=== PATIENT | female | born 1955 | race Caucasian/White ===

== ENCOUNTER → 2017-06-02 | Outpatient (CLI) | payer BC ==
[~2017-06-02] MED LIST: AMLO5TAB2 PO; BIOT300T2 PO; LMEF1TAB PO; OMEG-116 PO
== END | disposition home or self-care (01) ==
LOC: RAH 13:39
DX: Z12.31 Encounter for screening mammogram for malignant neoplasm of breast (principal)
CPT/HCPCS: 77067

== ENCOUNTER 2017-06-07 06:38 | Day surgery (SDC) | payer BC ==
[~2017-06-07] VITALS: Ht 154.9 cm; Wt 60.1 kg
[~2017-06-07 06:38] MED LIST changes: -LMEF1TAB PO
[2017-06-07] MEDS ORDERED: SODIUM CHLORIDE 0.9% 1000ML 1,000 ML IV ONE (06:48)
[2017-06-07 07:15] VITALS: BP 135/80
[2017-06-07] MEDS ORDERED: LMEF1TAB PO (07:47)
[2017-06-07] MEDS ORDERED: PROPOFOL 10 MG/ML 20ML VIAL IV ONE (09:35)
[2017-06-07] MEDS ORDERED: FENTANYL CITRATE PF 50 MCG/1 ML 2ML VIAL ONE (09:39)
[2017-06-07 09:56] VITALS: BP 106/60
== END 2017-06-07 10:35 | disposition home or self-care (01) ==
LOC: DAH 06:38
PROVIDERS: ATTEND Internal Medicine Gastroenterology
DX: Z12.11 Encounter for screening for malignant neoplasm of colon (principal); K57.30 Diverticulosis of large intestine without perforation or abscess without bleeding; K63.89 Other specified diseases of intestine; I10 Essential (primary) hypertension; F17.210 Nicotine dependence, cigarettes, uncomplicated; Z79.899 Other long term (current) drug therapy
CPT/HCPCS: 45378; A4606; J2704; J3010; J7030

== ENCOUNTER → 2018-06-03 | Outpatient (CLI) | payer BC ==
[~2018-06-03] MED LIST changes: -AMLO5TAB2 PO; +AMLO5TAB9 PO; -BIOT300T2 PO; +BIOT300T3 PO; +LMEF1TAB PO
== END | disposition home or self-care (01) ==
LOC: RAH 09:09
PROVIDERS: ATTEND Nurse Practitioner Adult Health
DX: Z12.31 Encounter for screening mammogram for malignant neoplasm of breast (principal)
CPT/HCPCS: 77067

== ENCOUNTER → 2019-06-07 | Outpatient (CLI) | payer BC ==
[~2019-06-07] MED LIST changes: -BIOT300T3 PO; +BIOT300T7 PO
== END | disposition home or self-care (01) ==
LOC: RAH 08:43
PROVIDERS: ATTEND Nurse Practitioner Adult Health
DX: Z12.31 Encounter for screening mammogram for malignant neoplasm of breast (principal)
CPT/HCPCS: 77067

== ENCOUNTER 2024-03-07 04:37 | Inpatient (IN) | payer OTHER ==
[~2024-03-07] VITALS: Ht 162.6 cm; Wt 83.5 kg
[2024-03-07] VITALS (11 sets, daily range): BP systolic 102–146; BP diastolic 62–85; PULSE 87–108; RESP 17–32; TEMP 97–98.5; O2SAT 96–99
[~2024-03-07 04:37] MED LIST changes: +AMLO-257 PO; -AMLO5TAB9 PO
[2024-03-07 04:58] LABS: BASOPHILS # (AUTO) 0.06 K/uL (0.00-0.20); BASOPHILS % (AUTO) 0.4 % (0.0-5.0); EOSINOPHILS # (AUTO) 0.17 K/uL (0.00-0.70); EOSINOPHILS % (AUTO) 1.1 % (0.0-8.0); IMMATURE GRANULOCYTE ABSOLUTE 0.06 K/uL (0-1); LYMPHOCYTES % (AUTO) 6.2 % (21.0-51.0); MEAN CORPUSCULAR HEMOGLOBIN 30.2 pg (27.0-33.0); MEAN CORPUSCULAR HGB CONC 33.9 g/dL (32.0-36.0); MEAN CORPUSCULAR VOLUME 89.2 fL (79-99); MONOCYTES # (AUTO) 0.4 K/uL (0.1-1.0); MONOCYTES % (AUTO) 2.8 % (3.0-13.0); NEUTROPHILS % (AUTO) 89.1 % (40.0-77.0); PLATELET COUNT (AUTO) 246 K/uL (130-400); RED BLOOD CELL COUNT(AUTO) 4.93 MIL/uL (4.00-5.50); RED CELL DISTRIBUTION WIDTH 12.6 % (11.0-15.5); WHITE BLOOD COUNT (AUTO) 15.7 K/uL (4.8-10.8)
[2024-03-07 05:07] LABS: CREATININE 0.8 mg/dL (0.5-1.0); POTASSIUM 4.2 mmol/L (3.5-5.1)
[2024-03-07] MEDS: Solu-medROL 125MG VIAL ONE (05:11)
[2024-03-07] MEDS: Solu-medROL 125MG VIAL IVP ONE (05:13)
[2024-03-07] MEDS: MAGNESIUM 2GM PREMIX 50ML 50 ML IV SCH (05:14)
[2024-03-07] MEDS: MAGNESIUM 2GM PREMIX 50ML 50 ML IV ONE (05:15)
[2024-03-07 05:26] LABS: ABG HCO3 23.4 mmol/L (21.0-28.0); ABG OXYGEN SATURATION 95.7 % (94.0-98.0); ABG PCO2 46 mmHg (32-45); CARBON MONOXIDE 1.3 % (0.5-1.5); HHb 4.2; PO2, ARTERIAL BG 85.8 mmHg (83.0-108.0)
[2024-03-07] MEDS: BUDESONIDE 0.5 MG/2 ML INH IH ONE (05:35)
[2024-03-07] MEDS: IpraTROPium/alBUTERol SULFATE 3 ML SOLUTION IH ONE (05:35)
[2024-03-07 05:55] LABS: B-TYPE NATRIURETIC PEPTIDE 9 pg/mL (0-100)
[2024-03-07 05:57] LABS: WBC MORPHOLOGY CONSISTENT W/DIFF
[2024-03-07] MEDS ORDERED: levoFLOXacin 750 MG/D5W 150ML BAG IV ONE (06:30)
[2024-03-07 06:36] LABS: SARS-CoV-2, RNA, NAAT NEGATIVE SARS CoV-2 (NEGATIVE)
[2024-03-07 06:43] LABS: INFLUENZA TYPE A Negative For Type A (NEGATIVE); INFLUENZA TYPE B Negative For Type B (NEGATIVE)
[2024-03-07] MEDS: levoFLOXacin 500 MG/D5W 100 ML 100 ML IV SCH (06:44)
[2024-03-07] MEDS: furoSEMIDE 40MG VIAL IV ONE (06:45)
[2024-03-07] MEDS ORDERED: PoTASSium chl 10% ELIXIR 20MEQ 20 MEQ/15 ML UDCUP PO PRN (07:00)
[2024-03-07] MEDS ORDERED: PoTASSium chloRIDE 20MEQ/100ML 100 ML IV PRN (07:00)
[2024-03-07] MEDS ORDERED: BENZONATATE 100 MG CAPSULE PO PRN (07:00)
[2024-03-07] MEDS ORDERED: acetaMINOPHEN 325 MG TAB PO PRN (07:00)
[2024-03-07] MEDS ORDERED: MAGNESIUM 2GM PREMIX 50ML 50 ML IV PRN (07:00)
[2024-03-07] MEDS ORDERED: ondanSETRON 4MG INJ IVP PRN (07:00)
[2024-03-07] MEDS ORDERED: PoTASSium chloRIDE 20MEQ ER 20 MEQ ERTAB PO PRN (07:00)
[2024-03-07] MEDS: levoFLOXacin 500 MG/D5W 100 ML 100 ML ONE (07:22)
[2024-03-07] MEDS: Solu-medROL 40MG VIAL IVP SCH ×2 (07:36→14:37)
[2024-03-07] MEDS ORDERED: ATOR40TA69 PO (11:04)
[2024-03-07] MEDS ORDERED: CALC-910 PO (11:04)
[2024-03-07] MEDS ORDERED: METO-391 PO (11:04)
[2024-03-07] MEDS ORDERED: BIOT5000 PO (11:04)
[2024-03-07] MEDS ORDERED: VITA100T9 PO (11:04)
[2024-03-07] MEDS: IpraTROPium/alBUTERol SULFATE 3 ML SOLUTION IH SCH (11:43)
[2024-03-07] MEDS: monteLUKAST sodIUM 10 MG TAB PO SCH (14:37)
[2024-03-07] MEDS: BENZONATATE 100 MG CAPSULE PO SCH (14:37)
[2024-03-07] MEDS: SODIUM CHLORIDE 3% FOR INHALATION 4 ML/AMP VIAL.NEB IH ONE (19:07)
[2024-03-08] VITALS (17 sets, daily range): BP systolic 94–119; BP diastolic 54–72; PULSE 80–111; RESP 13–20; TEMP 97.8–99.1; O2SAT 93–98
[2024-03-08] MEDS ORDERED: SODIUM CHLORIDE 3% FOR INHALATION 4 ML/AMP VIAL.NEB IH ONE (00:23)
[2024-03-08 03:54] LABS: BASOPHILS # (AUTO) 0.02 K/uL (0.00-0.20); BASOPHILS % (AUTO) 0.1 % (0.0-5.0); HEMATOCRIT 41.2 % (36-48); IMMATURE GRANULOCYTE ABSOLUTE 0.08 K/uL (0-1); LYMPHOCYTES # (AUTO) 0.7 K/uL (1.0-4.8); LYMPHOCYTES % (AUTO) 4.2 % (21.0-51.0); MEAN CORPUSCULAR HEMOGLOBIN 30.4 pg (27.0-33.0); MEAN CORPUSCULAR HGB CONC 33.3 g/dL (32.0-36.0); MEAN CORPUSCULAR VOLUME 91.6 fL (79-99); MONOCYTES # (AUTO) 0.5 K/uL (0.1-1.0); MONOCYTES % (AUTO) 3.1 % (3.0-13.0); NEUTROPHILS % (AUTO) 92.1 % (40.0-77.0); PLATELET COUNT (AUTO) 223 K/uL (130-400); RED CELL DISTRIBUTION WIDTH 12.8 % (11.0-15.5); WHITE BLOOD COUNT (AUTO) 17.3 K/uL (4.8-10.8)
[2024-03-08 04:30] LABS: ALBUMIN 3.5 g/dL (3.5-5.0); BILIRUBIN,TOTAL 0.4 mg/dL (0.2-1.0); MAGNESIUM 2.3 mg/dL (1.80-2.40); PHOSPHORUS 3.7 mg/dL (2.5-4.9); POTASSIUM 3.5 mmol/L (3.5-5.1); THYROID STIMULATING HORMONE 0.24 uIU/mL (0.36-3.74); TOTAL PROTEIN, SERUM 7.2 g/dL (6.0-8.3)
[2024-03-08] MEDS: levoFLOXacin 750 MG/D5W 150 ML 150 ML IV SCH (09:00)
[2024-03-08] MEDS ORDERED: IpraTROPium 0.5 MG/2.5 ML INH IH PRN ×3 (10:00→10:30)
[2024-03-08] MEDS ORDERED: AZITHROMYCIN 500MG+NS 250ML 250 ML IVPB ONE (10:00)
[2024-03-08 10:10] LABS: ABG BASE EXCESS -1.5 mmol/L (-2.0-3.0); ABG HCO3 21.2 mmol/L (21.0-28.0); ABG OXYGEN SATURATION 93.8 % (94.0-98.0); ABG PCO2 31 mmHg (32-45); ABG PH 7.459 (7.350-7.450); DEVICE COMMENT LR MARCIA; PO2, ARTERIAL BG 64.2 mmHg (83.0-108.0); VENT MODE, BG RA (ROOM AIR)
[2024-03-08] MEDS: AZITHROMYCIN 250 MG TABLET PO ONE (10:21)
[2024-03-08] MEDS: guaiFENesin-coDEINE 5 ML SYRUP PO PRN ×2 (10:21→22:55)
[2024-03-08] MEDS: AZITHROMYCIN 250 MG TABLET PO SCH (11:00)
[2024-03-08] MEDS: IpraTROPium 0.5 MG/2.5 ML INH IH SCH (11:43)
[2024-03-08] MEDS: BUDESONIDE 0.5 MG/2 ML INH IH SCH (18:26)
[2024-03-09] VITALS (7 sets, daily range): BP systolic 99–116; BP diastolic 52–82; PULSE 72–132; RESP 18–24; TEMP 97.6–98.5; O2SAT 92–97
[2024-03-09 04:05] LABS: BASOPHILS # (AUTO) 0.02 K/uL (0.00-0.20); BASOPHILS % (AUTO) 0.1 % (0.0-5.0); EOSINOPHILS # (AUTO) 0.01 K/uL (0.00-0.70); EOSINOPHILS % (AUTO) 0.1 % (0.0-8.0); HEMATOCRIT 37.1 % (36-48); IMMATURE GRANULOCYTE ABSOLUTE 0.13 K/uL (0-1); LYMPHOCYTES # (AUTO) 0.7 K/uL (1.0-4.8); LYMPHOCYTES % (AUTO) 3.6 % (21.0-51.0); MEAN CORPUSCULAR HEMOGLOBIN 30.4 pg (27.0-33.0); MEAN CORPUSCULAR HGB CONC 33.7 g/dL (32.0-36.0); MEAN CORPUSCULAR VOLUME 90.3 fL (79-99); MONOCYTES # (AUTO) 0.7 K/uL (0.1-1.0); MONOCYTES % (AUTO) 3.4 % (3.0-13.0); NEUTROPHILS # (AUTO) 17.8 K/uL (1.8-7.7); NEUTROPHILS % (AUTO) 92.1 % (40.0-77.0); PLATELET COUNT (AUTO) 233 K/uL (130-400); RED BLOOD CELL COUNT(AUTO) 4.11 MIL/uL (4.00-5.50); RED CELL DISTRIBUTION WIDTH 13.1 % (11.0-15.5); WHITE BLOOD COUNT (AUTO) 19.3 K/uL (4.8-10.8)
[2024-03-09 04:32] LABS: ALBUMIN 3.3 g/dL (3.5-5.0); BILIRUBIN,TOTAL 0.4 mg/dL (0.2-1.0); CREATININE 1.1 mg/dL (0.5-1.0); MAGNESIUM 2.2 mg/dL (1.80-2.40); POTASSIUM 4.1 mmol/L (3.5-5.1); TOTAL PROTEIN, SERUM 6.8 g/dL (6.0-8.3)
[2024-03-09] MEDS: predniSONE 20 MG TABLET PO SCH (08:18)
[2024-03-09] MEDS ORDERED: MONT-46 PO (11:04)
[2024-03-09] MEDS ORDERED: NEBU-305 MC (11:04)
[2024-03-09] MEDS ORDERED: IPRNEB IH (11:04)
[2024-03-09] MEDS ORDERED: AZIT250T PO (11:04)
[2024-03-09] MEDS ORDERED: METH4TAB3 PO (11:04)
[2024-03-09] MEDS ORDERED: BUDE0.5A3 NEB (11:38)
== END 2024-03-09 12:45 | disposition home or self-care (01) | DRG 189 ==
LOC: EDH 04:37 → EDHIP 06:23 → 2DH 07:05
PROVIDERS: ADMIT Internal Medicine; ATTEND Internal Medicine
PROC: 5A09357 Assistance with Respiratory Ventilation, Less than 24 Consecutive Hours, Continuous Positive Airway Pressure (ICD-10-PCS; principal; 2024-03-07)
PROC: 5A09357 Assistance with Respiratory Ventilation, Less than 24 Consecutive Hours, Continuous Positive Airway Pressure (ICD-10-PCS; 2024-03-08)
DX: J96.01 Acute respiratory failure with hypoxia (principal); J44.1 Chronic obstructive pulmonary disease with (acute) exacerbation; J84.9 Interstitial pulmonary disease, unspecified; Z20.822 Contact with and (suspected) exposure to COVID-19; D72.829 Elevated white blood cell count, unspecified; M81.0 Age-related osteoporosis without current pathological fracture; I11.9 Hypertensive heart disease without heart failure; E78.5 Hyperlipidemia, unspecified; Z87.891 Personal history of nicotine dependence
CPT/HCPCS: 36415; 36600; 71045; 71250; 80048; 80053; 82435; 82803; 82947; 83605; 83735; 83880; 84100; 84132; 84145; 84295; 84443; 85018; 85025; 86140; 87071; 87205; 87635; 87804; 93306; 94640; 94660; 94664; 94760; 96375; 96376; G0378; J1940; J1956; J2919; J3475